=== PATIENT | female | born 1985 | race Caucasian/White ===

== ENCOUNTER 2021-10-07 15:52 | Emergency (ER) | payer BC ==
[2021-10-07 16:37] VITALS: BP 117/77; PULSE 82; TEMP 98.7; BMI 21.4
== END 2021-10-07 17:24 | disposition home or self-care (01) ==
LOC: JERFT 15:52
DX: S93.402A Sprain of unspecified ligament of left ankle, initial encounter (principal); X50.9XXA Other and unspecified overexertion or strenuous movements or postures, initial encounter
CPT/HCPCS: 73610-TC-LT-FY; 73630-TC-LT; 99283-25